=== PATIENT | female | born 1995 | race Two or more races ===

== ENCOUNTER 2018-04-15 13:07 | Emergency (ER) | payer MEDICAID, OTHER ==
[~2018-04-15] VITALS: Ht 167.6 cm; Wt 68.0 kg
[2018-04-15 15:44] VITALS: BP 117/61
== END 2018-04-15 16:18 | disposition home or self-care (01) ==
LOC: ER 13:11
DX: S09.90XA Unspecified injury of head, initial encounter (principal); W01.0XXA Fall on same level from slipping, tripping and stumbling without subsequent striking against object, initial encounter; Y93.89 Activity, other specified; Y99.8 Other external cause status; Y92.89 Other specified places as the place of occurrence of the external cause
CPT/HCPCS: 70450; 70486

== ENCOUNTER 2019-08-15 12:10 | Observation (INO) | payer MEDICAID ==
[2019-08-15] MEDS ORDERED: PREN-96 PO (12:44)
[2019-08-15] MEDS ORDERED: HYDR250I6 IM (12:44)
== END 2019-08-15 16:03 | disposition home or self-care (01) | DRG 566 ==
LOC: LDRP 12:10
PROVIDERS: ADMIT Specialist; ATTEND Specialist
DX: O26.892 Other specified pregnancy related conditions, second trimester (principal); R10.9 Unspecified abdominal pain; Z3A.21 21 weeks gestation of pregnancy; Z91.040 Latex allergy status
CPT/HCPCS: 59025; 76705; 81002; G0378

== ENCOUNTER 2023-05-07 23:43 | Emergency (ER) | payer MEDICAID, OTHER ==
[~2023-05-07] VITALS: Ht 167.6 cm; Wt 80.0 kg
[~2023-05-07 23:43] MED LIST: HYDR250I6 IM; PREN-96 PO
[2023-05-08 00:18] VITALS: BP 135/74; PULSE 102; RESP 18; TEMP 98.4; O2SAT 99
[2023-05-08] MEDS ORDERED: IBUP1TAB5 PO (01:40)
== END 2023-05-08 02:00 | disposition home or self-care (01) ==
LOC: EDBD 23:43 → ER 23:43 → EDUNIT# 23:43 → ER 05-08 01:53
DX: S00.03XA Contusion of scalp, initial encounter (principal); W22.8XXA Striking against or struck by other objects, initial encounter; Y93.89 Activity, other specified; Y92.89 Other specified places as the place of occurrence of the external cause; Y99.8 Other external cause status
CPT/HCPCS: 70450